=== PATIENT | male | born 1950 | race Asian ===

== ENCOUNTER 2016-09-09 12:26 | Emergency (ER) | payer OTHER | END 2016-09-09 13:18 | disposition left against medical advice (07) | LOC: EMS 12:43 | DX: K59.00 Constipation, unspecified (principal); Z53.21 Procedure and treatment not carried out due to patient leaving prior to being seen by health care provider ==

== ENCOUNTER 2017-03-09 04:07 | Inpatient (IN) | payer OTHER ==
[~2017-03-09] VITALS: Ht 185.4 cm; Wt 65.9 kg
[2017-03-09] MEDS ORDERED: ATOR40TA28 PO (04:39)
[2017-03-09] MEDS ORDERED: SACU1TAB PO (04:39)
[2017-03-09] MEDS ORDERED: RIVA15T PO (04:39)
[2017-03-09] MEDS ORDERED: GLYB5 PO (04:39)
[2017-03-09] MEDS ORDERED: AZIT250T9 PO (04:39)
[2017-03-09] MEDS ORDERED: TAMS0.4C32 PO (04:39)
[2017-03-09] MEDS ORDERED: CARV3 PO (04:39)
[2017-03-09 05:02] LABS: GLUCOSE,POINT OF CARE 85 MG/DL (70-110)
[2017-03-09 05:02] LABS: BASOPHILS % (AUTO) 0.2 % (0.0-2.0); EOSINOPHILS % (AUTO) 0.2 % (1.0-6.0); HEMATOCRIT 40.6 % (41-53); HEMOGLOBIN 13.7 g/dL (13.5-17.5); LYMPHOCYTES # (AUTO) 1.1 K/uL (1.0-4.8); LYMPHOCYTES % (AUTO) 16.7 % (22.0-44.0); MEAN CORPUSCULAR HEMOGLOBIN 29.7 pg (26.0-34.0); MEAN CORPUSCULAR HGB CONC 33.6 G/dL (31.0-37.0); MEAN CORPUSCULAR VOLUME 88 fL (80-100); MONOCYTES # (AUTO) 0.5 K/uL (0.1-1.0); MONOCYTES % (AUTO) 8.5 % (2.0-9.0); NEUTROPHILS # (AUTO) 4.7 K/uL (1.8-7.7); NEUTROPHILS % (AUTO) 74.4 % (40.0-70.0); RED CELL DISTRIBUTION WIDTH 15.2 % (11.5-14.5)
[2017-03-09 05:11] LABS: CREATININE 1.3 mg/dL (0.60-1.30); POTASSIUM 3.5 mmol/L (3.5-5.1)
[2017-03-09 05:15] LABS: ALBUMIN 3.4 g/dL (3.4-5.0); BILIRUBIN,TOTAL 0.5 mg/dL (0.1-1.0); TOTAL PROTEIN, SERUM 7.8 g/dL (6.4-8.2)
[2017-03-09] MEDS ORDERED: DEXTROSE 10%-WATER 1,000 ML IV ONE ×2 (05:15→10:45)
[2017-03-09] MEDS ORDERED: DEXTROSE 50%-WATER 25 GM/50 ML SYRINGE IVP ONE (05:15)
[2017-03-09 05:28] LABS: PLATELET COUNT (AUTO) 139 K/uL (150-450); PLATELET MORPHOLOGY COMMENT GIANT PLTS PRESENT
[2017-03-09 05:36] LABS: GLUCOSE,POINT OF CARE 199 MG/DL (70-110)
[2017-03-09 06:00] LABS: APPEARANCE,URINE CLEAR (CLEAR); BILIRUBIN,URINE NEGATIVE (NEGATIVE); GLUCOSE, URINE (UA) 250 mg/dL (NEGATIVE); KETONES,URINE NEGATIVE (NEGATIVE); LEUKOCYTE ESTERASE ,URINE NEGATIVE (NEGATIVE); NITRATE,URINE NEGATIVE (NEGATIVE); OCCULT BLOOD,URINE SMALL (NEGATIVE); PROTEIN,URINE POS 1+ (NEGATIVE); UROBILINOGEN,URINE 0.2 mg/dL (<=1.0)
[2017-03-09] MEDS ORDERED: ONDANSETRON HCL 4 MG/2 ML VIAL IVP PRN ×2 (06:00→10:45)
[2017-03-09] MEDS ORDERED: 0.9% SODIUM CHLORIDE 10 ML SYRINGE IVP PRN (06:00)
[2017-03-09] MEDS ORDERED: ACETAMINOPHEN 325 MG TABLET PO PRN (06:00)
[2017-03-09 06:12] LABS: GLUCOSE,POINT OF CARE 150 MG/DL (70-110)
[2017-03-09 06:16] LABS: BACTERIA,URINE Rare /HPF (None Seen); SQUAMOUS EPITHELIAL CELL,UR Rare /LPF (None Seen); WBC,URINE 0-2 /HPF (0-5)
[2017-03-09 06:37] LABS: GLUCOSE,POINT OF CARE 141 MG/DL (70-110)
[2017-03-09 07:12] LABS: GLUCOSE,POINT OF CARE 148 MG/DL (70-110)
[2017-03-09 07:52] LABS: GLUCOSE,POINT OF CARE 136 MG/DL (70-110)
[2017-03-09 08:23] VITALS: BP 107/56
[2017-03-09] MEDS ORDERED: ALBUTEROL SULFATE/IPRATROPIUM 100-20 MCG/SPRAY 4 GM INHALER IH PRN (10:45)
[2017-03-09] MEDS ORDERED: MAGNESIUM HYDROXIDE SUSPENSION 30 ML UDCUP PO PRN (10:45)
[2017-03-09] MEDS ORDERED: ZOLPIDEM TARTRATE 5 MG TABLET PO PRN (10:45)
[2017-03-09] MEDS ORDERED: BISACODYL 10 MG RECTAL RECTAL SUPPOSITORY PR PRN (10:45)
[2017-03-09] MEDS ORDERED: MORPHINE SULFATE 2 MG/ML SYRINGE IVP PRN (10:45)
[2017-03-09 11:20] VITALS: BP 106/61
[2017-03-09 13:18] LABS: GLUCOMETER DEV NAME(LOC) PV 4E; GLUCOSE,POINT OF CARE 76 MG/DL (70-110)
[2017-03-09 13:18] LABS: GLUCOMETER DEV NAME(LOC) PV 4E; GLUCOSE,POINT OF CARE 97 MG/DL (70-110)
[2017-03-09 13:18] LABS: GLUCOMETER DEV NAME(LOC) PV 4E; GLUCOSE,POINT OF CARE 55 MG/DL (70-110)
[2017-03-09] MEDS: AZITHROMYCIN 250 MG TABLET PO SCH (13:28)
[2017-03-09] MEDS: SACUBITRIL/VALSARTAN 24-26 MG TABLET PO SCH ×2 (13:28→20:56)
[2017-03-09] MEDS ORDERED: DEXTROSE 50%-WATER 25 GM/50 ML SYRINGE IVP PRN (13:30)
[2017-03-09 15:00] VITALS: BP 108/63
[2017-03-09 18:23] LABS: GLUCOMETER DEV NAME(LOC) PV 4E; GLUCOSE,POINT OF CARE 109 MG/DL (70-110)
[2017-03-09 18:23] LABS: GLUCOMETER DEV NAME(LOC) PV 4E; GLUCOSE,POINT OF CARE 57 MG/DL (70-110)
[2017-03-09 20:47] VITALS: BP 128/70
[2017-03-09] MEDS: CARVEDILOL 3.125 MG TABLET PO SCH (20:55)
[2017-03-09] MEDS: ATORVASTATIN CALCIUM 40 MG TABLET PO SCH (20:55)
[2017-03-09] MEDS: DOCUSATE SODIUM 100 MG CAPSULE PO SCH (20:56)
[2017-03-09] MEDS ORDERED: RIVAROXABAN 15 MG TABLET PO ONE (21:45)
[2017-03-09] MEDS ORDERED: MELATONIN 3 MG TABLET PO PRN (22:00)
[2017-03-09] MEDS ORDERED: DEXTROSE 10%-WATER 1,000 ML IV SCH (22:00)
[2017-03-09] MEDS: TAMSULOSIN HCL 0.4 MG CAPSULE PO SCH (22:14)
[2017-03-09] MEDS: RIVAROXABAN 15 MG TABLET PO SCH (22:15)
[2017-03-10 00:18] VITALS: BP 103/71
[2017-03-10 01:28] LABS: GLUCOMETER DEV NAME(LOC) PV 4E; GLUCOSE,POINT OF CARE 105 MG/DL (70-110)
[2017-03-10 01:28] LABS: GLUCOMETER DEV NAME(LOC) PV 4E; GLUCOSE,POINT OF CARE 90 MG/DL (70-110)
[2017-03-10 06:23] LABS: GLUCOMETER DEV NAME(LOC) PV 4E; GLUCOSE,POINT OF CARE 116 MG/DL (70-110)
[2017-03-10 06:36] LABS: BASOPHILS % (AUTO) 0.2 % (0.0-2.0); EOSINOPHILS % (AUTO) 0.2 % (1.0-6.0); HEMOGLOBIN 12.5 g/dL (13.5-17.5); LYMPHOCYTES # (AUTO) 1.2 K/uL (1.0-4.8); LYMPHOCYTES % (AUTO) 18.1 % (22.0-44.0); MEAN CORPUSCULAR HEMOGLOBIN 29.3 pg (26.0-34.0); MEAN CORPUSCULAR HGB CONC 33.8 G/dL (31.0-37.0); MEAN CORPUSCULAR VOLUME 87 fL (80-100); MONOCYTES # (AUTO) 0.6 K/uL (0.1-1.0); MONOCYTES % (AUTO) 8.8 % (2.0-9.0); NEUTROPHILS # (AUTO) 4.7 K/uL (1.8-7.7); NEUTROPHILS % (AUTO) 72.7 % (40.0-70.0); PLATELET COUNT (AUTO) 145 K/uL (150-450); RED BLOOD CELL COUNT(AUTO) 4.26 MIL/uL (4.50-5.90); RED CELL DISTRIBUTION WIDTH 15.7 % (11.5-14.5)
[2017-03-10 07:06] VITALS: BP 124/70
[2017-03-10 07:14] LABS: ANION GAP 8 mmol/L (8-16); CALCIUM, TOTAL 7.8 mg/dL (8.8-10.5); CARBON DIOXIDE 25 mmol/L (22-29); CHLORIDE 98 mmol/L (98-107); CREATININE 1.19 mg/dL (0.60-1.30); GLOMERULAR FILTR. RATE CALC > 60 mL/min (>60); GLUCOSE,RANDOM 117 mg/dL (70-110); POTASSIUM 3.2 mmol/L (3.5-5.1); SODIUM SERUM 131 mmol/L (136-145); UREA NITROGEN, BLOOD 15 mg/dL (7-18)
[2017-03-10 08:44] VITALS: BP 107/61
[2017-03-10] MEDS: TAMSULOSIN HCL 0.4 MG CAPSULE PO SCH (08:54)
[2017-03-10] MEDS: CARVEDILOL 3.125 MG TABLET PO SCH ×2 (08:54→20:38)
[2017-03-10] MEDS: DOCUSATE SODIUM 100 MG CAPSULE PO SCH ×2 (08:54→20:43)
[2017-03-10] MEDS: AZITHROMYCIN 250 MG TABLET PO SCH (08:54)
[2017-03-10] MEDS: PANTOPRAZOLE SODIUM 40 MG DR TABLET PO SCH (08:54)
[2017-03-10] MEDS: SACUBITRIL/VALSARTAN 24-26 MG TABLET PO SCH ×2 (08:59→21:00)
[2017-03-10] MEDS: INSULIN ASPART 100 UNITS/ML SQ PRN ×3 (09:00→21:00)
[2017-03-10] MEDS ORDERED: TAMSULOSIN HCL 0.4 MG CAPSULE PO SCH (09:00)
[2017-03-10] MEDS ORDERED: RIVAROXABAN 15 MG TABLET PO SCH (09:00)
[2017-03-10 09:23] LABS: GLUCOMETER DEV NAME(LOC) PV 4E; GLUCOSE,POINT OF CARE 147 MG/DL (70-110)
[2017-03-10] MEDS ORDERED: POTASSIUM CHLORIDE 20 MEQ ER TABLET PO PRN ×2 (10:00)
[2017-03-10] MEDS ORDERED: POTASSIUM CHL 10 MEQ/WATER 50 ML IV PRN (10:00)
[2017-03-10] MEDS: GuaiFENesin/D-METHORPHAN [SUGAR-FREE] 200-20MG/10 ML SYRUP UDCUP PO PRN ×2 (11:00→20:37)
[2017-03-10 12:12] LABS: GLUCOMETER DEV NAME(LOC) PV 4E; GLUCOSE,POINT OF CARE 130 MG/DL (70-110)
[2017-03-10] MEDS: DEXTROSE 10%-WATER 1,000 ML IV SCH (13:30)
[2017-03-10] MEDS: ACETAMINOPHEN 325 MG TABLET PO PRN (13:33)
[2017-03-10 13:49] VITALS: BP 97/55
[2017-03-10 17:00] VITALS: BP 101/55
[2017-03-10] MEDS: RIVAROXABAN 15 MG TABLET PO SCH (17:22)
[2017-03-10 17:33] LABS: GLUCOMETER DEV NAME(LOC) PV 4E; GLUCOSE,POINT OF CARE 145 MG/DL (70-110)
[2017-03-10 20:15] VITALS: BP 107/67
[2017-03-10] MEDS: HYDROCODONE/ACETAMINOPHEN 5-325 MG TABLET PO PRN (20:38)
[2017-03-10] MEDS: ATORVASTATIN CALCIUM 40 MG TABLET PO SCH (20:38)
[2017-03-10 21:28] LABS: GLUCOMETER DEV NAME(LOC) PV 4E; GLUCOSE,POINT OF CARE 190 MG/DL (70-110)
[2017-03-11] VITALS (7 sets, daily range): BP systolic 96–119; BP diastolic 52–65
[2017-03-11] MEDS: GuaiFENesin/D-METHORPHAN [SUGAR-FREE] 200-20MG/10 ML SYRUP UDCUP PO PRN ×4 (03:30→20:37)
[2017-03-11] MEDS: INSULIN ASPART 100 UNITS/ML SQ PRN ×3 (06:01→20:38)
[2017-03-11 06:23] LABS: GLUCOMETER DEV NAME(LOC) PV 4E; GLUCOSE,POINT OF CARE 175 MG/DL (70-110)
[2017-03-11 07:42] LABS: BASOPHILS # (AUTO) 0.02 K/uL (0.00-0.20); BASOPHILS % (AUTO) 0.3 % (0.0-2.0); EOSINOPHILS # (AUTO) 0.17 K/uL (0.00-0.70); EOSINOPHILS % (AUTO) 2.77 % (1.0-6.0); HEMATOCRIT 35.8 % (41-53); HEMOGLOBIN 12.2 g/dL (13.5-17.5); LYMPHOCYTES # (AUTO) 1.8 K/uL (1.0-4.8); MEAN CORPUSCULAR HEMOGLOBIN 29.3 pg (26.0-34.0); MEAN CORPUSCULAR VOLUME 86 fL (80-100); MONOCYTES # (AUTO) 0.6 K/uL (0.1-1.0); MONOCYTES % (AUTO) 10.6 % (2.0-9.0); NEUTROPHILS # (AUTO) 3.5 K/uL (1.8-7.7); NEUTROPHILS % (AUTO) 57.3 % (40.0-70.0); PLATELET COUNT (AUTO) 130 K/uL (150-450); RED BLOOD CELL COUNT(AUTO) 4.15 MIL/uL (4.50-5.90); RED CELL DISTRIBUTION WIDTH 15.2 % (11.5-14.5)
[2017-03-11 07:50] LABS: CREATININE 1.33 mg/dL (0.60-1.30); POTASSIUM 3.9 mmol/L (3.5-5.1)
[2017-03-11] MEDS: DOCUSATE SODIUM 100 MG CAPSULE PO SCH ×2 (08:17→20:37)
[2017-03-11] MEDS: PANTOPRAZOLE SODIUM 40 MG DR TABLET PO SCH (09:02)
[2017-03-11] MEDS: SACUBITRIL/VALSARTAN 24-26 MG TABLET PO SCH (09:02)
[2017-03-11] MEDS: CARVEDILOL 3.125 MG TABLET PO SCH ×3 (09:02→20:42)
[2017-03-11] MEDS: AZITHROMYCIN 250 MG TABLET PO SCH (09:02)
[2017-03-11] MEDS: TAMSULOSIN HCL 0.4 MG CAPSULE PO SCH (09:02)
[2017-03-11] MEDS: DEXTROSE 10%-WATER 1,000 ML IV SCH (09:36)
[2017-03-11] MEDS: HYDROCODONE/ACETAMINOPHEN 5-325 MG TABLET PO PRN ×2 (09:36→14:20)
[2017-03-11 09:37] LABS: GLUCOMETER DEV NAME(LOC) PV 4E; GLUCOSE,POINT OF CARE 157 MG/DL (70-110)
[2017-03-11 12:58] LABS: GLUCOMETER DEV NAME(LOC) PV 4E; GLUCOSE,POINT OF CARE 275 MG/DL (70-110)
[2017-03-11 15:42] LABS: GLUCOMETER DEV NAME(LOC) PV 4E; GLUCOSE,POINT OF CARE 215 MG/DL (70-110)
[2017-03-11] MEDS: RIVAROXABAN 15 MG TABLET PO SCH (17:04)
[2017-03-11 18:27] LABS: GLUCOMETER DEV NAME(LOC) PV 4E; GLUCOSE,POINT OF CARE 168 MG/DL (70-110)
[2017-03-11] MEDS: ACETAMINOPHEN 325 MG TABLET PO PRN (20:37)
[2017-03-11] MEDS: ATORVASTATIN CALCIUM 40 MG TABLET PO SCH (20:37)
[2017-03-12] MEDS: INSULIN ASPART 100 UNITS/ML SQ PRN ×4 (00:16→21:39)
[2017-03-12] MEDS: GuaiFENesin/D-METHORPHAN [SUGAR-FREE] 200-20MG/10 ML SYRUP UDCUP PO PRN ×2 (04:26→21:46)
[2017-03-12 04:34] VITALS: BP 109/57
[2017-03-12 06:00] LABS: HEMATOCRIT 36.6 % (41-53); HEMOGLOBIN 12.2 g/dL (13.5-17.5); MEAN CORPUSCULAR HEMOGLOBIN 29.4 pg (26.0-34.0); MEAN CORPUSCULAR HGB CONC 33.5 G/dL (31.0-37.0); MEAN CORPUSCULAR VOLUME 88 fL (80-100); PLATELET COUNT (AUTO) 144 K/uL (150-450); RED BLOOD CELL COUNT(AUTO) 4.17 MIL/uL (4.50-5.90); RED CELL DISTRIBUTION WIDTH 15.4 % (11.5-14.5)
[2017-03-12 06:13] LABS: GLUCOMETER DEV NAME(LOC) PV 4E; GLUCOSE,POINT OF CARE 150 MG/DL (70-110)
[2017-03-12 06:13] LABS: GLUCOMETER DEV NAME(LOC) PV 4E; GLUCOSE,POINT OF CARE 188 MG/DL (70-110)
[2017-03-12 06:13] LABS: GLUCOMETER DEV NAME(LOC) PV 4E; GLUCOSE,POINT OF CARE 140 MG/DL (70-110)
[2017-03-12 06:22] LABS: CALCIUM, TOTAL 8.6 mg/dL (8.8-10.5); CREATININE 1.35 mg/dL (0.60-1.30); POTASSIUM 3.9 mmol/L (3.5-5.1)
[2017-03-12 08:48] VITALS: BP 109/65
[2017-03-12] MEDS: PANTOPRAZOLE SODIUM 40 MG DR TABLET PO SCH (09:12)
[2017-03-12] MEDS: CARVEDILOL 3.125 MG TABLET PO SCH ×2 (09:12→21:33)
[2017-03-12] MEDS: TAMSULOSIN HCL 0.4 MG CAPSULE PO SCH (09:12)
[2017-03-12] MEDS: AZITHROMYCIN 250 MG TABLET PO SCH (09:13)
[2017-03-12 12:30] VITALS: BP 112/57
[2017-03-12 12:33] LABS: GLUCOMETER DEV NAME(LOC) PV 4E; GLUCOSE,POINT OF CARE 172 MG/DL (70-110)
[2017-03-12 12:33] LABS: GLUCOMETER DEV NAME(LOC) PV 4E; GLUCOSE,POINT OF CARE 307 MG/DL (70-110)
[2017-03-12] MEDS ORDERED: SODIUM CHLORIDE 0.9% 1,000 ML IV ONE (13:15)
[2017-03-12 16:14] VITALS: BP 108/54
[2017-03-12 16:24] LABS: BAND NEUTROPHILS % (MANUAL) 2 % (1-5); EOSINOPHILS % (MANUAL) 5 % (1-6); LYMPHOCYTES % (MANUAL) 18 % (22-44); MONOCYTES % (MANUAL) 8 % (2-9); REACTIVE LYMPHOCYTES 13 % (0-0); SEGMENTED NEUTROPHILS % 54 % (40-70)
[2017-03-12 16:25] LABS: PLATELET MORPHOLOGY COMMENT NORMAL
[2017-03-12] MEDS: RIVAROXABAN 15 MG TABLET PO SCH (17:05)
[2017-03-12 17:53] LABS: GLUCOMETER DEV NAME(LOC) PV 4E; GLUCOSE,POINT OF CARE 152 MG/DL (70-110)
[2017-03-12 20:57] VITALS: BP 107/56
[2017-03-12] MEDS: DOCUSATE SODIUM 100 MG CAPSULE PO SCH (21:33)
[2017-03-12] MEDS: ATORVASTATIN CALCIUM 40 MG TABLET PO SCH (21:33)
[2017-03-12 22:22] LABS: GLUCOMETER DEV NAME(LOC) PV 4E; GLUCOSE,POINT OF CARE 149 MG/DL (70-110)
[2017-03-13 00:04] VITALS: BP 134/68
[2017-03-13 04:48] VITALS: BP 119/69
[2017-03-13] MEDS: GuaiFENesin/D-METHORPHAN [SUGAR-FREE] 200-20MG/10 ML SYRUP UDCUP PO PRN (05:05)
[2017-03-13 05:53] LABS: GLUCOMETER DEV NAME(LOC) PV 4E; GLUCOSE,POINT OF CARE 140 MG/DL (70-110)
[2017-03-13 06:50] LABS: ANION GAP 9 mmol/L (8-16); CALCIUM, TOTAL 8.2 mg/dL (8.8-10.5); CARBON DIOXIDE 25 mmol/L (22-29); CHLORIDE 105 mmol/L (98-107); CREATININE 1.16 mg/dL (0.60-1.30); GLOMERULAR FILTR. RATE CALC > 60 mL/min (>60); GLUCOSE,RANDOM 152 mg/dL (70-110); POTASSIUM 3.8 mmol/L (3.5-5.1); SODIUM SERUM 139 mmol/L (136-145); UREA NITROGEN, BLOOD 17 mg/dL (7-18)
[2017-03-13 08:40] VITALS: BP 141/88
[2017-03-13] MEDS: PANTOPRAZOLE SODIUM 40 MG DR TABLET PO SCH (08:49)
[2017-03-13] MEDS: TAMSULOSIN HCL 0.4 MG CAPSULE PO SCH (08:49)
[2017-03-13] MEDS: CARVEDILOL 3.125 MG TABLET PO SCH (08:49)
[2017-03-13] MEDS: AZITHROMYCIN 250 MG TABLET PO SCH (08:50)
[2017-03-13] MEDS: INSULIN ASPART 100 UNITS/ML SQ PRN ×2 (11:56→17:15)
[2017-03-13 12:18] LABS: GLUCOMETER DEV NAME(LOC) PV 4E; GLUCOSE,POINT OF CARE 246 MG/DL (70-110)
[2017-03-13 12:32] VITALS: BP 111/61
[2017-03-13] MEDS: RIVAROXABAN 15 MG TABLET PO SCH (17:08)
[2017-03-13 17:12] VITALS: BP 126/62
[2017-03-13 17:43] LABS: GLUCOMETER DEV NAME(LOC) PV 4E; GLUCOSE,POINT OF CARE 268 MG/DL (70-110)
== END 2017-03-13 18:00 | disposition home or self-care (01) | DRG 637 ==
LOC: EMS 04:08 → 4E 06:30
PROVIDERS: ADMIT Internal Medicine; ATTEND Internal Medicine
DX: E11.649 Type 2 diabetes mellitus with hypoglycemia without coma (principal); G93.41 Metabolic encephalopathy; N17.9 Acute kidney failure, unspecified; E11.22 Type 2 diabetes mellitus with diabetic chronic kidney disease; I13.0 Hypertensive heart and chronic kidney disease with heart failure and stage 1 through stage 4 chronic kidney disease, or unspecified chronic kidney disease; I50.22 Chronic systolic (congestive) heart failure; I42.9 Cardiomyopathy, unspecified; E78.5 Hyperlipidemia, unspecified; N18.9 Chronic kidney disease, unspecified; Z86.79 Personal history of other diseases of the circulatory system; Z86.718 Personal history of other venous thrombosis and embolism; Z79.01 Long term (current) use of anticoagulants
CPT/HCPCS: 76770; 82948; 82962; 83036; 84132; 93005; 96361; 96374; 99285; J7030